=== PATIENT | male | born 1985 | race Caucasian/White ===

== ENCOUNTER 2017-10-04 18:40 | Emergency (ER) | payer MEDICAID | END 2017-10-04 19:35 | disposition home or self-care (01) | LOC: E/R 18:40 | DX: J30.9 Allergic rhinitis, unspecified (principal) | CPT/HCPCS: 99283; Z7502 ==

== ENCOUNTER 2018-03-24 10:59 | Emergency (ER) | payer MEDICAID ==
[2018-03-24] MEDS: ACETAMINOPHEN 325 MG TAB PO (12:12)
== END 2018-03-24 13:47 | disposition home or self-care (01) ==
LOC: FTE 10:59
DX: M25.561 Pain in right knee (principal); M25.562 Pain in left knee
CPT/HCPCS: 73562; 73562-50; 99284-25